=== PATIENT | female | born 1945 | race Caucasian/White ===

== ENCOUNTER 2017-05-26 13:46 | Emergency (ER) | payer OTHER, MEDICARE ==
[2017-05-26 14:05] VITALS: BP 138/93; PULSE 112; TEMP 98.8; BMI 25.9
--- NOTE | 2017-05-26 14:23 | PDOC ---
History of Present Illness - General Chief Complaint: Injury Stated Complaint: LEFT UPPER LEG PAIN INJURY Time Seen by Provider: 05/26/17 13:56 - History of Present Illness Initial Comments: 05/26/17 14:26 Chief complaint: Left posterior thigh pain History of present illness: Patient tripped on a rock in the parking lot, fell and "pulled" muscles in the posterior thigh, left. Complains of pain in the proximal and mid thigh, posteriorly, over the hamstring muscle. Denies hip or knee pain. Review of systems: Denies pain or injury to the head neck chest abdomen spine and pelvis or other extremities. Denies feeling faint, dizzy, loss of consciousness, visual or focal neurologic symptoms, chest pain, shortness of breath, abdominal pain Past medical history, as noted, noncontributory to this complaint Social/family history reviewed and noncontributory Physical exam: Alert and oriented well-developed well-nourished no acute distress cheerful and cooperative. Fully ambulatory with only a slight limp due to calf pain Head atraumatic. PERRLA Neck without tenderness or deformity, full range of motion Chest clear. No chest wall or rib cage tenderness or deformity CV regular without murmur rub or gallop Abdomen soft nontender without mass or organomegaly Spine and pelvis without evidence of trauma Extremities: There is mild tenderness over the posterior thigh on the left side. There is no swelling or hematoma palpable. There is no erythema, induration, or skin injury. Full range of motion of the hip without limitation and without pain. Full range of motion of the knee without limitation or pain as well. Pulses full. No distal sensory or motor deficits. Multiple superficial abrasions of the right knee without sign of serious injury. No pain or tenderness. No limited range of motion. No pain with weightbearing Impression: Hamstring strain, no suggestion of fracture Plan: Rest, compression, nonweightbearing, ice initially, then heat. Patient has an appointment with her orthopedist for follow-up tomorrow and is encouraged to follow-up as planned. Adequately ambulatory and in no significant pain or other distress upon discharge to follow-up as directed Past History - Past Medical History Allergies/Adverse Reactions: Allergies Allergy/AdvReac Type Severity Reaction Status Date / Time Penicillins Allergy Unknown Rash Verified 05/26/17 13:48 Home Medications: Ambulatory Orders Esomeprazole Magnesium [Nexium 24Hr] 20 mg PO DAILY 05/26/17 Fexofenadine HCl [Peggy Allergy] 60 mg PO DAILY 05/26/17 Gabapentin 800 mg PO BID 05/26/17 Hydrocodone/Acetaminophen [Vicodin Hp 10-300 mg Tablet] 1 each PO PRN PRN Montelukast Na [Singulair -] 10 mg PO HS 05/26/17 Rosuvastatin Calcium [Crestor] 5 mg PO ASDIR 05/26/17 Hypercholesterolemia: Yes Other medical history: SEVER SCOLIOSIS - Immunization History Immunization Up to Date: Yes - Suicide/Smoking/Psychosocial Hx Smoking History: Never smoked Have you smoked in the past 12 months: No Information on smoking cessation initiated: No Hx Alcohol Use: No Drug/Substance Use Hx: No Substance Use Type: None *Physical Exam - Vital Signs Last Vital Signs Temp Pulse Resp BP Pulse Ox 98.8 F 112 H 20 138/93 100 05/26/17 13:47 05/26/17 13:47 05/26/17 13:47 05/26/17 13:47 05/26/17 13:47 *DC/Admit/Observation/Transfer Diagnosis at time of Disposition: Hamstring muscle strain Qualifiers: Encounter type: initial encounter Laterality: left Qualified Code(s): S76.312A - Strain of muscle, fascia and tendon of the posterior muscle group at thigh level, left thigh, initial encounter - Discharge Dispostion Disposition: HOME Condition at time of disposition: Improved Admit: No - Patient Instructions Printed Discharge Instructions: DI for Muscle Strain, How to Apply an Jarad Wrap Additional Instructions: Rest, nonweightbearing, Jarad bandage, ice for 24 hours, then heat. See your orthopedist as scheduled.
== END 2017-05-26 14:31 | disposition home or self-care (01) ==
LOC: FER 13:46
DX: S76.312A Strain of muscle, fascia and tendon of the posterior muscle group at thigh level, left thigh, initial encounter (principal); W22.8XXA Striking against or struck by other objects, initial encounter; Y93.89 Activity, other specified; Y92.481 Parking lot as the place of occurrence of the external cause; M41.9 Scoliosis, unspecified; E78.00 Pure hypercholesterolemia, unspecified
CPT/HCPCS: 99283-25